=== PATIENT | male | born 1970 | race Caucasian/White ===

== ENCOUNTER 2016-06-07 18:00 | Inpatient (IN) | payer MEDICARE ==
[~2016-06-07] VITALS: Ht 182.9 cm; Wt 105.5 kg
[~2016-06-07 18:00] MED LIST: AMT50T PO; CANNABIS OIL PO; FLUO20CA25 PO; LACT10SO27 PO; NADO20TA PO; PANT40TA3 PO
[2016-06-07 18:05] VITALS: BP 124/88; PULSE 101; RESP 16; O2SAT 95
[2016-06-07 18:49] LABS: BASOPHILS % (AUTO) 1.7 % (0-3); EOSINOPHILS % (AUTO) 4.4 % (0-5); MONOCYTES % (AUTO) 13.6 % (4-12); Mean Corpuscular Hemoglobin 23.4 pg (27.0-35.0); Mean Corpuscular Volume 73.5 fL (81-100); Platelet Count 101 bil/L (150-400)
[2016-06-07] MEDS ORDERED: Octreotide Inj 500 MCG in 0.9% Sodium Chloride 99 ML IV SCH (18:55)
[2016-06-07] MEDS ORDERED: Pantoprazole 4 mg/mL 10 mL Inj IVPUSH ONE (18:55)
--- NOTE | 2016-06-07 18:55 | ED.REPORT ---
HPI-GI Bleed Date of Service Jun 07, 2016 ED Provider: Agustín Barboza DO Pt is a 45 y.o. male with a hx of gastric and esophageal varices and cirrhosis who presents to the ED c/o 1 episode of hematemesis. He reports associated abdominal pain, nausea, and 1 episode of black stool. He states that the emesis was pink in color with blood clots.Pt states that his sx are similar to his last two GI bleeds, the most recent being 09/20/15 for which he was admitted to the ICU. He states his last endoscopy 6-8 months ago was normal and that his ulcers were healed. Pt denies any recent ETOH, ibuprofen, or aspirin use. Nursing Notes Stated Complaint: GASTRIC BLEEDING Chief Complaint: Male Abdominal Pain Nursing Notes Reviewed: Yes Allergies: Coded Allergies: Shellfish (Verified Allergy, Intermediate, unk, 06/07/16) Scheduled ([OTC Cannabis Oil]) 6 GTT PO HS Amitriptyline (Amitriptyline) 25 Mg Tab 50 MG PO HS Fluoxetine (Fluoxetine) 20 Mg Capsule 20 MG PO DAILY Lactulose (Lactulose) 10 Gm/15 Ml Solution 30 GM PO TID TITRATE FOR 3 SOFT STOOLS Nadolol (Nadolol) 20 Mg Tablet 20 MG PO HS Rifaximin (Xifaxan) 550 Mg Tablet 550 MG PO BID Scheduled PRN Albuterol HFA (Proair HFA) 8.5 Gm Hfa.aer.ad 2 PUFFS INHALATION Q4H PRN PRN For Shortness of Breath Nicotine Polacrilex (Nicotine Gum) 2 Mg Gum 2 MG PO PRN PRN PRN For Tobacco Withdrawal General Time Seen by Provider: 18:55 Chief Complaint Chief Complaint: Vomiting blood Bleeding Severity: Minimal, Teaspoons Hx Obtained From: Patient Arrived By: Walk-in Onset Occurred: 1 - 4 hours ago Symptom Duration: Since onset Location: : Diffuse Quality: Painful Severity: Current: No pain currently Severity: Maximum: Moderate Past Medical History Past Medical History Esophageal varices Pneumonia Cirrhosis Past Surgical History Colonoscopy with polypectomy Endoscopy Herniated disk Smoking History Current Every Day Smoker Social History Alcohol Use: Denies alcohol use Drug Use: Denies drug use Ambulatory Status Independent Review of Systems GI: Reports: Abdominal pain, Bloody/tarry stool (dark), Hematemesis, Nausea, Vomiting, Denies: Diarrhea Complete sys rev & neg: except as marked. Physical Exam Initial Vital Signs Vital Signs (First) Date Time Temp Pulse Resp B/P Pulse Ox O2 Delivery O2 Flow Rate FiO2 06/07/16 18:05 36.9 101 16 124/88 95 Room Air Initial VS: Reviewed Extremities: Vascular intact, Neuro intact Skin: Warm, Dry, No cyanosis Neurologic: Alert, Oriented, Nonfocal Psychiatric: Mood/affect normal, Behavior normal, Normal thought content General/Constitutional: Awake, Alert, No acute distress, Well appearing, Well developed, Well hydrated, Well nourished, Not toxic appearing Respiratory / Chest: Atraumatic, Breath sounds NL, Breath sounds = bilat, No respiratory distress, No rales, No rhonchi, No wheezing, No retractions, No stridor Cardiovascular: Heart rate NL, Regular rhythm, Heart sounds NL, Peripheral circulation NL Abdomen: Atraumatic, Soft, Non-tender, No guarding, No rebound, No distention Organomegaly / Mass / Hernia: Positive: Hepatomegaly No ascites present upon examination Rectum / Perineum: Patient refused exam Head / Eyes: Atraumatic, Normocephalic Conjunctiva / Sclera: Positive: Pallor Interpretation & Diagnostics Lab Results Interpretation Result Diagram: 06/07/16201906/07/16 1830 Test 06/07/16 18:30 06/07/16 19:57 06/07/16 20:20 White Blood Count 5.2th/mm3 (3.8-10.1) Red Blood Count 4.31mil/mm3 (4.40-5.80) Mean Corpuscular Volume 73.5fL (81-100) Mean Corpuscular Hemoglobin 23.4pg (27.0-35.0) Mean Corpuscular Hemoglobin Concent 31.9% (32.0-37.0) Red Cell Distribution Width 22.8% (12.3-15.4) Platelet Count 101bil/L (150-400) Neutrophils (%) (Auto) 58.0% (40-74) Lymphocytes (%) (Auto) 22.3% (14-46) Monocytes (%) (Auto) 13.6% (4-12) Eosinophils (%) (Auto) 4.4% (0-5) Basophils (%) (Auto) 1.7% (0-3) Prothrombin Time 15.4sec (8.1-12.5) Prothromb Time International Ratio 1.43ratio Sodium Level 134mEq/L (134-144) Potassium Level 4.6mEq/L (3.5-5.2) Chloride Level 100mEq/L (97-108) Carbon Dioxide Level 22mmol/L (18-29) Blood Urea Nitrogen 10mg/dL (6-24) Creatinine 0.45mg/dL (0.76-1.27) Estimat Glomerular Filtration Rate 215mL/min (>59) Glucose Level 157mg/dL (60-99) Calcium Level 8.5mg/dL (8.5-10.1) Total Bilirubin 1.9mg/dL (0.0-1.2) Aspartate Amino Transf (AST/SGOT) 169U/L (0-50) Alanine Aminotransferase (ALT/SGPT) 48U/L (0-44) Alkaline Phosphatase 115U/L (25-150) Total Protein 7.6g/dL (6.4-8.4) Albumin 3.5g/dL (3.4-5.0) Hold Rayo Top Tube Received (Received) Ammonia 190ug/dL (18-53) Hemoglobin 9.8g/dL (13.8-17.2) Hematocrit 30.4% (41.0-50.0) ECG Interpretation Time: 19:03 Normal ECG Interpretation: Normal ECG w/ rate of... (93), Normal rate, Normal sinus rhythm, No acute ischemic changes, Normal QRS, Normal axis, Normal intervals Re-Eval/Medical Decision Med Decision/Clinical Course 45-year-old male with a history of esophageal varices and peptic ulcer disease presents with hematemesis. He also has dark stools. He is brought up several teaspoons of blood today. He has abstained from alcohol for many months. He is not using NSAIDs. He was last scope in October by Dr. Pan. On examination his vitals were normal. He is not tachycardic nor hypotensive. He looks a little pale but beyond that he has a benign examination. He does have some hepatomegaly. Laboratory work shows mild anemia. Thrombocytopenia. He does have a coagulopathy with an INR of 1.4. Remainder of labs are reassuring. IV access 3 was obtained. Octreotide bolus and drip initiated. Protonix bolus and drip initiated. IV ceftriaxone initiated. This gentleman has been typed and crossed for 4 units. Past intestinal consultation was performed by myself with the on-call instrumentation designer. Time for admission to the ICU. Discussed with our hospitalist who accepted him for admission. Re-Evaluation/Progress : Time of Eval: 20:03 Re-Evaluation/Progress Note: Pt is now vomiting per nurse. Consultation #1: Referral / Consult Name: Nga Chavez MD Call Returned at: 20:02 Pbx Operator: Will see patient, Agrees with eval, Agrees with plan Note: Discussed pt condition with Dr. Chavez, GI. Will consult and see pt tomorrow. Consultation #2: Referral / Consult Name: Colby Monreal MD Consulted With: Hospitalist Call Returned at: 20:10 Pbx Operator: Will see patient, Agrees with eval, Agrees with plan, Accepts admit Note: Discussed pt condition and consult with Dr. Chavez. Accepts admit. Counseled Regarding: Diagnosis Discharge & Departure Shift Change Sign-Out Response to Therapy: Improved Impression: Primary Impression: Upper GI bleed Additional Impressions: Hematemesis Nausea presence: with nausea Qualified Code: K92.0 - Hematemesis Dark stools Esophageal varices Esophageal varices type: secondary Esophageal varices bleeding: with bleeding Qualified Code: I85.11 - Secondary esophageal varices with bleeding Coagulopathy Thrombocytopenia Cirrhosis of liver Hepatic cirrhosis type: alcoholic cirrhosis Ascites presence: without ascites Qualified Code: K70.30 - Alcoholic cirrhosis of liver without ascites Disposition: ADMITTED TO HOSPITAL Discharge Condition All VS Reviewed: Yes Referrals: Jim Messer MD (PCP) Crit Care Except Billable Proc Time Spent: 75-104 minutes Scribe Attestation Portions of this note were transcribed by Johnathon Sanders. I, Dr. Barboza personally performed the history, physical exam and medical decision-making; I reviewed and confirmed the accuracy of the information in the transcribed note. Signed by : Gretta Carrillo, 06/07/16 and 2038. copies to: Jim Messer MD, Todd P DO Jun 07, 2016 18:55 JOHNATHON SANDERS Jun 07, 2016 19:08
[2016-06-07 18:59] LABS: INR 1.43 ratio
[2016-06-07 19:32] VITALS: BP 144/103; PULSE 84; RESP 16; O2SAT 99
[2016-06-07] MEDS ORDERED: Ondansetron 2 mg/mL 2 mL Inj IVPUSH PRN ×2 (20:05→20:15)
[2016-06-07] MEDS ORDERED: cefTRIAXone Inj 2,000 MG in Dextrose 5% Minibag Plus 50 ML IV ONE (20:05)
[2016-06-07] MEDS ORDERED: Pantoprazole Inj 80 MG, Pharmacy To Mix 1 EA in 0.9% Sodium Chloride 80 ML IV SCH ×2 (20:15)
[2016-06-07] MEDS ORDERED: Alum-Mag Hydrox-Simeth 30 mL Suspension PO PRN (20:15)
[2016-06-07] MEDS: Octreotide Inj 500 MCG in 0.9% Sodium Chloride 99 ML IV SCH (20:15)
[2016-06-07] MEDS ORDERED: Senna-Docusate 8.6-50 mg Tablet PO PRN (20:15)
[2016-06-07] MEDS ORDERED: Polyethylene Glycol (PEG) 17 Gm Powder PO PRN (20:15)
[2016-06-07] MEDS: Pantoprazole Inj 80 MG in 0.9% Sodium Chloride 80 ML IV SCH (21:05)
[2016-06-07 21:13] VITALS: BP 126/92; PULSE 95; RESP 16; O2SAT 96
[2016-06-07] MEDS ORDERED: ALBU8.5H2 INHALATION (21:33)
[2016-06-07] MEDS ORDERED: RIFA550T3 PO (21:33)
[2016-06-07] MEDS ORDERED: AMT25T PO (21:40)
[2016-06-07] MEDS ORDERED: NICO2GUM3 PO (21:40)
[2016-06-07] MEDS ORDERED: IPRA4AER IH (21:41)
[2016-06-07 21:52] VITALS: BP 126/92; PULSE 95; RESP 16; O2SAT 96
[2016-06-07] MEDS: 0.9% Sodium Chloride 1,000 ML IV SCH (21:53)
--- NOTE | 2016-06-07 22:15 | PCM.HPMED ---
Subjective Date of Service Jun 07, 2016 Primary Provider: Admitting Physician: Primary Care Physician: Isis Rogers [facility] Attending Physician: Admit Status: From the Emergency Department, Full Admit, Critical Care Chief Complaint: Hematemesis History of Present Illness: Remy Krueger is a 45 y.o. male with Cirrhosis with gastric and esophageal varices and cirrhosis who presents to [facility] emergency department c/o 1 episode of hematemesis. He reports associated abdominal pain (diffuse without any radiation), nausea, and 1 episode of black stool. He states that the emesis was pink in color with blood clots. Denies taking any NSAID recently and no alcohol intake Pt states that his symptoms are similar to his last two GI bleeds, the most recent being 09/20/15 for which he was admitted to the ICU. He states his last endoscopy 6-8 months ago was normal and that his ulcers were healed. Pt denies any recent ETOH, ibuprofen, or aspirin use. Patient had Upper GI bleeding in 2013 while vacationing in [place] and found to have varices that were banded and patient has been on Nadolol for prophylaxis. Patient has chronic Hepatitis C infection from tattoo and was a heavy drinker in the past. Case discussed with Dr Barboza, he spoke to Dr Chavez. Patient admitted to CCU, Protonix, fluids and Octreotide initiated Review of Systems: Pertinent positives as noted in HPI. All other systems were reviewed and are negative Allergies Coded Allergies: Shellfish (Verified Allergy, Intermediate, unk, 06/07/16) Home Medications From [facility] Hydroxyzine 25 mg 2 tabs HS prn itching Combivent 20/100 inh 1 puff qid prn Amitriptyline 100 mg HS Fluoxetine 20 mg daily Protonix 40 mg bid Nadolol 20 mg daily Lactulose 30 ml tid Ventolin HFA 2 puffs q 4-6 hours prn Xifaxan 550 mg bid PMH HCV genotype 1a, treated with Harvoni Alcoholic hepatitis Varices, fundic and esophageal Hemorrhoids Chronic bronchitis Hypertension . Surgical History EGD 04/2015: - Small esophageal varices - Isolated fundic varices - Portal hypertensive gastropathy - Duodenopathy - Colon polyps - Engorged hemorrhoids Family History Mother had Lupus Father: Sudden , unknown etiology Social History Hx Alcohol Use: Yes (Sober since 09/30/13; uses cannabis oil at HS) Hx Substance Use: No Hx Tobacco Use: Yes Smoking Status: Current Every Day Smoker Living Arrangement: with Family Exam Vital Signs Vital Sign - Last Date Time Temp Pulse Resp B/P Pulse Ox O2 Delivery O2 Flow Rate FiO2 06/07/16 19:32 84 16 144/103 99 Room Air 06/07/16 18:05 36.9 Exam General: Alert, Oriented X3, Cooperative, No acute Distress Eyes: PERRLA, Scleral Anicteric Mouth: Mouth Normal, Mucous Membranes Moist/[place] Neck: Supple, no Thyromegaly, trachea central. Chest & Lungs: Clear to auscultation & percussion, No adventitious breath sounds, no crackles, no wheeze Cardiovascular: Normal S1, Normal S2, No Murmurs/Rubs/Gallops, Regular Rate/ Rhythm, Murmur, Other (No JVD, no peripheral edema) Pulses: Radial (present and equal), Dorsalis Pedi (present and equal) Abdomen: Soft, Non-tender, Non-distended, Normoactive bowel tones. Musculoskeletal: Unremarkable. Normal range of motion, no swollen or erythematous joints Extremities: No edema, no cyanosis, no clubbing. Skin: No rashes. Warm and dry, no erythematous areas Neurological: Grossly neurologically intact, has generalized weakness, Normal Speech, Sensation Intact Lymphatic: Lymph nodes Cervical and Axillary not palpable. Lab and Diagnostics Labs Laboratory Tests Test 06/07/16 18:30 06/07/16 19:57 White Blood Count 5.2th/mm3 (3.8-10.1) Red Blood Count 4.31mil/mm3 (4.40-5.80) Hemoglobin 10.1g/dL (13.8-17.2) Hematocrit 31.7% (41.0-50.0) Mean Corpuscular Volume 73.5fL (81-100) Mean Corpuscular Hemoglobin 23.4pg (27.0-35.0) Mean Corpuscular Hemoglobin Concent 31.9% (32.0-37.0) Red Cell Distribution Width 22.8% (12.3-15.4) Platelet Count 101bil/L (150-400) Neutrophils (%) (Auto) 58.0% (40-74) Lymphocytes (%) (Auto) 22.3% (14-46) Monocytes (%) (Auto) 13.6% (4-12) Eosinophils (%) (Auto) 4.4% (0-5) Basophils (%) (Auto) 1.7% (0-3) Prothrombin Time 15.4sec (8.1-12.5) Prothromb Time International Ratio 1.43ratio Sodium Level 134mEq/L (134-144) Potassium Level 4.6mEq/L (3.5-5.2) Chloride Level 100mEq/L (97-108) Carbon Dioxide Level 22mmol/L (18-29) Blood Urea Nitrogen 10mg/dL (6-24) Creatinine 0.45mg/dL (0.76-1.27) Estimat Glomerular Filtration Rate 215mL/min (>59) Glucose Level 157mg/dL (60-99) Calcium Level 8.5mg/dL (8.5-10.1) Total Bilirubin 1.9mg/dL (0.0-1.2) Aspartate Amino Transf (AST/SGOT) 169U/L (0-50) Alanine Aminotransferase (ALT/SGPT) 48U/L (0-44) Alkaline Phosphatase 115U/L (25-150) Total Protein 7.6g/dL (6.4-8.4) Albumin 3.5g/dL (3.4-5.0) Hold Rayo Top Tube Received (Received) Result Diagram: 06/07/16182906/07/161829 Assessment & Plan Mr. Remy Krueger is a pleasant 45 year old gentleman with a history of alcoholic cirrhosis, gastric varices, HCV, and HTN, that presented to the ED with a 12 hour history of hematemesis; He was admitted for evaluation and treatment of acute anemia secondary to gastrointestinal bleeding. Hospital day one 1. Upper gastrointestinal bleeding, acute, present on admission. Under therapy Likely variceal bleeding although patient has ulcers in the past. Denies any NSAID or Alcohol intake. - CCU admission for close monitoring - Strict NPO - Octreotide drip continued preferably for 48-72 hours - Protonix continued - Ceftriaxone 1g q24 continued for SBP prophylaxis - Avoidance of NSAIDs 2. Anemia, acute from blood loss, present on admission. Under therapy - Secondary to above - tachycardia sign of volume loss but no hypotension at this time - continue IV fluids to maintain volume - will transfuse pRBC if Hgb < 7 according restrictive transfusions guidelines 3. Alcoholic cirrhosis with portal Hypertension, Thrombocytopenia and varices, chronic. - Holding lactulose at this time secondary to bleed and possibility for endoscopic intervention/evaluation - Resume lactulose when appropriate as well as Rifaximin - Platelet transfusion when drop < 50,000. 4. Hypertension, essential, chronic. Patient not on any antihypertensive agents - Monitor closely 5. Nicotine Dependence. Ongoing - cessation discussed and encouraged. - Nicotine lozenges ordered - Acetaminophen as needed for mild pain/fever/headache - Bowel regimen as needed - Antiemetic as needed Patient admitted under inpatient status with expected length of stay > 2 midnights for severity of present symptoms, complexities of treatment plan and risk for adverse event . Resuscitation Status: CPR: Attempt Resuscitation Time spent 50 minutes of critical care time spend Colby Monreal MD Jun 07, 2016 20:20
[2016-06-07 22:19] VITALS: BP 148/92; PULSE 86; RESP 18; O2SAT 97
--- NOTE | 2016-06-07 22:50 | NUR ---
Admit to CCU Pt admitted to CCU room 2010 from ED in stable condition and with all belongings. A&O x 3. Able to ambulate from gurney to scale to bed without difficulty or problem. Tele shoes SR 90s. SpO2 high 90s on RA. Denies n/v/d, palpitations, or dizziness at this time. Reports 6/10 "pressure" in abdomen, which is pt's baseline. Oriented pt to room, floor and call light. Pt's Rhea decided to go home for evening and will be back in AM. All questions answered to satisfaction of pt and . Admit complete. Care ongoing
[2016-06-08] VITALS (13 sets, daily range): BP systolic 99–157; BP diastolic 58–97; PULSE 77–96; RESP 16–20; O2SAT 92–97
--- NOTE | 2016-06-08 03:08 | NUR ---
Transfer to [facility] Pt transferred with all belongings, medications and chart to [facility]. Report noted from CCU RN. Pt had small burgundy, dark and tarry stool prior to move. made aware this am with new orders noted. Pt denies any pain/discomfort. Alert and oriented x3. Pt denies any c/o nausea. Addendum: 06/08/16 at 0506 by MENDEZ DUMONT RN Correction: Pt had a moderate amount of small, burgundy, dark and tarry stool.
[2016-06-08] MEDS: 0.9% Sodium Chloride 1,000 ML IV SCH ×3 (04:11→20:16)
[2016-06-08 04:51] LABS: BASOPHILS % (AUTO) 1.1 % (0-3); EOSINOPHILS % (AUTO) 3.4 % (0-5); MONOCYTES % (AUTO) 12.7 % (4-12); Mean Corpuscular Hemoglobin 23.9 pg (27.0-35.0); Mean Corpuscular Volume 74.7 fL (81-100); Platelet Count 71 bil/L (150-400)
[2016-06-08] MEDS: Pantoprazole Inj 80 MG in 0.9% Sodium Chloride 80 ML IV SCH (05:39)
--- NOTE | 2016-06-08 06:07 | NUR ---
BM/H&H No further BM noted at this time. Md made aware of am H&H 8.5 & 26.6. Order for q4H H&H noted. Telemetry SR in 80s. Pt denies any chest pain. Pt alert and oriented x3. VALENZUELA. Forgetful at times. Answers questions appropriately. Using call light for assistance.
[2016-06-08] MEDS: Octreotide Inj 500 MCG in 0.9% Sodium Chloride 99 ML IV SCH ×2 (06:15→20:06)
--- NOTE | 2016-06-08 11:49 | PCM.PNMED ---
Subjective Date of Service Jun 08, 2016 Subjective This is a 45 year old male who was admitted overnight due to abdominal pain, nausea, melena, hematemesis. Patient has a history to upper GI bleeds with most recent being in August 2015 with ICU admission. Last endoscopy patient states was 2 months ago her records indicate 6-8 months ago was normal. Patient was previously banded. Patient does have a history of alcoholic cirrhosis as well as possible hepatitis cirrhosis due to positive hep C from tattoos, and gastric and esophageal varices. Patient states that no longer drinks except for a couple of sips on a regular basis. Also denies use of aspirin and ibuprofen. Patient's GI history was worked up and treated in [place]. This morning the patient is doing well with no additional pain. No nausea, vomiting, melena, hematemesis, lightheadedness, confusion, or dizziness. Patient is sleeping well. GI was consulted from the emergency department and patient scheduled to undergo upper endoscopy this afternoon at 3:30. Patient made nothing by mouth at noon, and only clear liquids until a time. Exam Vital Signs Vital Sign - Last Date Time Temp Pulse Resp B/P Pulse Ox O2 Delivery O2 Flow Rate FiO2 06/08/16 08:50 36.8 85 16 138/91 95 Room Air Intake and Output 06/07/16 06/07/16 06/08/16 Cumulative From/Thru 15:00 23:00 07:00 06/07/16 18:05 - 06/08/16 05:51 Intake Total 1172 ml 1172 ml Output Total 450 ml 450 ml Balance 722 ml 722 ml Intake Oral 100 ml 100 ml IV Total 1072 ml 1072 ml Output Urine Total 450 ml 450 ml # Bowel Movements 1 1 Exam Gen: NAD, lying comfortably HEENT: no jvd, no lymphadenopathy Cardio: Regular rate and rhythm no murmurs rubs or gallops Respiratory: Clear to auscultation bilaterally with no coarse breath sounds Abdomen: Soft, nontender, nondistended, positive bowel sounds, no right upper quadrant or epigastric tenderness Extremities: No edema, no cyanosis Skin: No rashes, warm and dry Neurological: Grossly intact, moving all 4 shoulders Psych: Appropriate mood and affect Lab and Diagnostics Result Diagram: 06/08/16 0910 06/08/16 1499 Assessment & Plan Mr. Remy Krueger is a pleasant 45 year old gentleman with a history of alcoholic cirrhosis, gastric varices, HCV, and HTN, that presented to the ED with a 12 hour history of hematemesis; He was admitted for evaluation and treatment of acute anemia secondary to gastrointestinal bleeding. Hospital day one 1. Upper gastrointestinal bleeding, acute, present on admission. Under therapy - Likely variceal bleeding although patient has ulcers in the past. Denies any NSAID or Alcohol intake. - Downgraded to PCC - Strict NPO after noon, consistent with endoscopy nurses instructions. Clear liquids with no red or purple until noon - Octreotide drip continued preferably for 48-72 hours - Protonix continued - Ceftriaxone 1g q24 continued for SBP prophylaxis - Avoidance of NSAIDs - Restart Nadolol after GI assessment 2. Anemia, acute from blood loss, present on admission. Under therapy - Secondary to above - tachycardia sign of volume loss but no hypotension at this time - continue IV fluids to maintain volume - will transfuse pRBC if Hgb < 7 according restrictive transfusions guidelines; currently patient is stable at approximately 0.5 3. Alcoholic cirrhosis with portal Hypertension, Thrombocytopenia and varices, chronic. - Holding lactulose at this time secondary to bleed and possibility for endoscopic intervention/evaluation - Resume lactulose when appropriate as well as Rifaximin - Platelet transfusion when drop < 50,000. 4. Hypertension, essential, chronic. Patient not on any antihypertensive agents - Monitor closely 5. Nicotine Dependence. Ongoing - cessation discussed and encouraged. - Nicotine lozenges ordered 6. Hyperammonia without encephalopathy; present on admission; ongoing - We will recheck ammonia level tomorrow as the patient is close to 200. Currently not showing any signs of confusion but is increasing tired - Recheck ammonia - Avoid Tylenol as much as possible; no NSAIDs due to ongoing bleed - Bowel regimen as needed - Antiemetic as needed Disposition: Patient will undergo upper endoscopy today with discharge planning per findings. Highly likely that the patient be discharged either tomorrow or Saturday but again this is dependent on the EGD today. . Pain Evaluation: Adequate Pain Control GI Prophylaxis: Proton Pump Inhibitor VTE Mechanical Devices: Intermittant Pneumatic CD Resuscitation Status: CPR: Attempt Resuscitation Leodan Casillas DO Jun 08, 2016 11:49
[2016-06-08] MEDS ORDERED: Lidocaine PF 1% 30 mL Inj ONE ×2 (12:49→15:33)
[2016-06-08] MEDS ORDERED: Propofol 10,000 mCg/mL 20 mL Inj ONE ×2 (12:49→15:33)
--- NOTE | 2016-06-08 13:53 | PCM.CHPMED ---
Subjective Date of Service: Jun 08, 2016 Provider requesting consult: Agustín Barboza DO Primary Physician: Admitting Physician: Colby Monreal MD Primary Care Physician: Isis Rogers Attending Physician: Colby Monreal MD Chief Complaint: Chief Complaint: REASON FOR GI CONSULT: Upper GI bleed/hematemesis History of Present Illness: GASTROENTEROLOGY CONSULTATION NOTE Mr. Krueger is an extremely pleasant 45 year old gentleman with a history of alcoholic cirrhosis, HCV genotype 1a treated with Harvoni, and fundic and esophageal varices, that presented to [facility] 06/07 with 3 episodes of hematemesis , abdominal pain, and melena. He was admitted for evaluation and treatment of acute anemia secondary to UGIB. GI was consulted to further assist in evaluation and treatment. Mr. Krueger states that after dinner 06/07, he began feeling ill with abdominal pain. His first episode of emesis contained a large amount of blood, and subsequent episodes x2 yielded less, and blood became scant. No recurrence of nausea and/or vomiting since admission. Stools remain dark and tarry. Denies any inciting factors for onset, other than overall general malaise and cough secondary to URI likely from his children, whom are also ill with URI-symptoms. Denies any recent NSAID, ASA use. Last EtOH intake was an isolated event summer 2015, of which, he states was not a binge amount, and has not had any EtOH intake since that time. GI consulted to evaluate symptoms and etiology. PMH Past Medical History HCV genotype 1a, treated with Harvoni Alcoholic hepatitis Varices, fundic and esophageal Hemorrhoids Chronic bronchitis Hypertension . Surgical History EGD 10/2015: - Healing PUD; improved and healing duodenal ulcers - Moderate gastropathy consistent with portal HTN - Isolated small fundal and small esophageal varices EGD 04/2015: - Small esophageal varices - Isolated fundic varices - Portal hypertensive gastropathy - Duodenopathy - Colon polyps - Engorged hemorrhoids Home Medications Hydroxyzine 25 mg 2 tabs HS prn itching Combivent 20/100 inh 1 puff qid prn Amitriptyline 100 mg HS Fluoxetine 20 mg daily Protonix 40 mg bid Nadolol 20 mg daily Lactulose 30 ml tid Ventolin HFA 2 puffs q 4-6 hours prn Xifaxan 550 mg bid Allergies: Coded Allergies: Shellfish (Verified Allergy, Intermediate, unk, 06/07/16) Family History Family History Mother had Lupus Father: Sudden , unknown etiology Social History Hx Alcohol Use: Yes (Sober since 09/30/13; uses cannabis oil at HS)Hx Substance Use: NoHx Tobacco Use: Yes Smoking Status: Current Every Day Smoker Living Arrangement: with Family Exam Vital Signs Vital Sign - Last Date Time Temp Pulse Resp B/P Pulse Ox O2 Delivery O2 Flow Rate FiO2 06/08/16 12:26 37.1 89 16 133/97 95 Room Air Intake and Output 06/07/16 06/07/16 06/08/16 Cumulative From/Thru 15:00 23:00 07:00 06/07/16 18:05 - 06/08/16 05:51 Intake Total 1172 ml 1172 ml Output Total 450 ml 450 ml Balance 722 ml 722 ml Intake Oral 100 ml 100 ml IV Total 1072 ml 1072 ml Output Urine Total 450 ml 450 ml # Bowel Movements 1 1 General: Alert, Oriented X3, Cooperative, No Acute Distress Head: Facial Expression & Appearance (equal and symmetric) Eyes: EOMI, Scleral Anicteric Nose: Mucous Membr Moist/[place] Mouth: Mucous Membr Moist/[place] Chest & Lungs: Auscultation (Clear bilaterally), No adventitious breath sounds Cardiovascular: Regular Rate/Rhythm, No Murmurs/Rubs/Gallops Abdomen: Non-tender, Non-distended, Soft, Obese Musculoskeletal: Normal Range of Motion Extremities: No cyanosis/clubbing/edma bilat, Warm Neurological: Grossly Neurologically Intact, Cranial Nerves 2-12 Intact, Normal Speech (without slur) Lab and Diagnostics Result Diagram: 06/08/1690906/08/16419 Assessment & Plan Assessment GASTROENTEROLOGY CONSULTATION NOTE Mr. Krueger is an extremely pleasant 45 year old gentleman with a history of alcoholic cirrhosis, HCV genotype 1a treated with Harvoni, and fundic and esophageal varices, that presented to [facility] 06/07 with 3 episodes of hematemesis , abdominal pain, and melena. He was admitted for evaluation and treatment of acute anemia secondary to UGIB. GI was consulted to further assist in evaluation and treatment. Assessments - Acute upper gastrointestinal bleeding - History of fundic and esophageal varices - History of alcoholic cirrhosis with portal HTN - History of HCV genotype 1a s/p Harvoni Plan - EGD 06/08 - Hold lactulose/rifaxamin until scope completed - Continue octreotide x48-72h from date of admission - Continue PPI gtt - Monitor HH values as appropriate - Agree with ceftriaxone 1g q24 for SBP prophylaxis - Avoidance of NSAIDs - Continued abstinence from alcohol Patient has been stable since admission, without recurrence of hematemesis. H/H values, vital signs have been stable. Plan for EGD 06/08. Thank you for this consult, we will happily follow along at this time. Please do not hesitate to contact with any questions or concerns. Total time: 45 minutes Problems: Pain Evaluation: Adequate Pain Control GI Prophylaxis: Proton Pump Inhibitor VTE Mechanical Devices: Intermittant Pneumatic CD Resuscitation Status: CPR: Attempt Resuscitation Attending Statement Patient seen and examined. Agree with assessment and plan as described by Dr Stapleton. Ophelia Stapleton DO Jun 08, 2016 13:53 Yariel Huerta MD Jun 08, 2016 16:33
[2016-06-08] MEDS ORDERED: Lactated Ringer's 1,000 ML IV ONE (14:50)
--- NOTE | 2016-06-08 15:11 | NUR ---
[facility] signed
[2016-06-08] MEDS ORDERED: Lactated Ringer's 1,000 ML IV SCH (15:38)
--- NOTE | 2016-06-08 15:38 | PCM.HPANE ---
Patient Data Date of Service: Jun 08, 2016 Surgeon Admitting Provider:Colby Monreal MD Attending Provider:Colby Monreal MD Primary Care Physician:Isis Rogers Other Provider: Reason for Visit Chest Wall Pain, Pneumonia Ht/WT & BMI Height (Feet): 6 Height (Inches): 0.00 Weight (Kilograms): 104.900 Body Mass Index 31.00 Allergies Coded Allergies: Shellfish (Verified Allergy, Intermediate, unk, 06/07/16) Past Anesthesia History Anesthesia History: Denies:: Abnormal Airway, Anesthesia Reactions, Difficult Intubation, Fam Anesthesia Reaction, Fam Malignant Hypertherm, Malignant Hyperthermia Diabetes History Hx Diabetes?: No MRSA MRSA: No Medications Home Meds Incl Beta Sher: Yes (nadolol) Date Beta Sher Taken: Jun 07, 2016 Time Beta Sher Taken: 1200 Reported Medications Albuterol/Ipratropium (Combivent Respimat Inhal [place])120 Spr/4 Gm Inhaler1 Puff IH QID PRN For Shortness of Breath #1 INH Ref 0 06/07/16 Nicotine Polacrilex (Nicotine Gum)2 Mg Gum2 Mg PO PRN PRN For Tobacco Withdrawal Ref 0 06/07/16 Amitriptyline 25 Mg Tab50 Mg PO HS Ref 0 06/07/16 Albuterol HFA (Proair HFA)8.5 Gm Hfa.aer.ad2 Puffs INHALATION Q4H PRN For Shortness of Breath #1 INHALER 06/07/16 Rifaximin (Xifaxan)550 Mg Vckbel113 Mg PO BID 60 Days 06/07/16 Lactulose 10 Gm/15 Ml Mmmtxfeh75 Gm PO TID TITRATE FOR 3 SOFT STOOLS 11/22/15 [OTC Cannabis Oil] No Conflict Check6 Gtt PO HS 11/22/15 Fluoxetine 20 Mg Jrrxojx50 Mg PO DAILY Ref 0 11/07/15 Nadolol 20 Mg Fupjtl09 Mg PO HS 30 Days Ref 0 10/20/15 Discontinued Reported Medications Amitriptyline 50 Mg Tab50 Mg PO HS Ref 0 10/20/[address] 40 Mg Tablet.dr40 Mg PO BID #60 Prov:Wilian Bassett MD 10/23/15 History History of ENT Problems?: No HEENT History: Denies:: Abnormal Airway Difficult Intubation Dysphagia Hearing Problem Hx of Heart Problems?: No Cardiovascular History: Positive for:: Hypertension Denies:: AICD Atrial Fibrillation Cardiac Surgery Chest Pain Congestive Heart Failure Edema Heart Murmur Irregular Heartbeat Pacemaker Thrombophlebitis Valvular Heart Disease Hx of Respiratory Problem?: Yes Respiratory History: Positive for:: Pneumonia (2013) Denies:: Asthma COPD Chest Surgery Cough Dyspnea Emphysema Hemoptysis Tuberculosis Other Resp Pertinent History: ? smokers cough x 1 year Hx Neurologic Problems?: Yes Neurological History: Denies:: Alzheimer's Disease CVA Dementia Dizziness Headaches Parkinson's Disease Seizures Other Neurological Pertinent: Confused at times from ammonia levels Hx of GI Problems?: Yes Gastrointestinal History: Positive for:: Cirrhosis Gastroesphageal Reflux Gastrointestinal Bleeding (Recent admission 08/2015) Heartburn Hepatitis (hep C treated 1 year ago.) Rectal Bleeding Denies:: Diverticulitis Hiatal Hernia Hx of Problems?: No Genitourinary History: Denies:: HX of Hemodialysis Kidney Stones Urinary Tract Infection HX of Peritoneal Dialysis: No Male Hx: Denies:: Prostate Problems Scrotal Mass Testicular Surgery Hx Musculoskeletal Problems?: Yes Musculoskeletal History: Positive for:: Back Injury (Slipped disc) Denies:: Joint Replacement Musculoskeletal Trauma Hx of Psycho/Social Problems?: No Psycho Social History: Positive for:: Hx Depression (on fluoxetine ) Denies:: Anxiety Bipolar Disorder Suicide Attempt Hx Surgeries?: Yes (Hernia rpr, back surgery) Hx Any Other Health Problems?: Yes Other History: Positive for:: Hospitalization (GI bleed 08/2015) Denies:: Cancer Thyroid Disease History Blood Transfusions: Positive for:: Accept Blood Products? Blood Transfusions Denies:: Blood Transfuse Reaction Hx Diabetes: No Hx Alcohol Use: Yes (Sober since 09/30/13; uses cannabis oil at HS)Hx Substance Use: No Smoking Status: Current Every Day Smoker Have You Smoked inLast 12 mo: YesApprox How Many Cigarettes/day: 8-10 cigs a day Stop/Bang Treated for Sleep Apnea?: No Do You Have a CPAP Machine?: No S-Snoring: Do You Snore Loudly: Yes T-Tired: feel tired, fatigued: No O-Obsered: Observed not breath: No B- Body Mass Index > 35 kg/m2: No A- Age over 50: No N- Neck Large Circumference: No G- Gender Male: Yes JANELLE Risk Assessment: Low Risk, <3 Yes Risk Assessment Category Category 1A: Patient has history of documented sleep apnea, and HAS NOT received any narcotic, sedative or anesthesia administration during this stay. Category 1B: Patient has history of documented sleep apnea, and HAS received any narcotic , sedative or anesthesia administration during this stay Category 2: Patient has SUSPECTED Obstructive Sleep Apnea, and HAS received any narcotic , sedative or anesthesia administration during this stay. Category 3: Patient has SUSPECTED Obstructive Sleep Apnea and HAS NOT received narcotic, sedative or anesthesia administration during this stay. Category 4: Outpatient in Procedural Areas with known sleep apnea or who screen positive for High Risk via the STOP/BANG questionnaire. Exam Exam Vital Signs Vital Signs Date Time Temp Pulse Resp B/P Pulse Ox O2 Delivery O2 Flow Rate FiO2 06/08/16 15:15 36.6 85 17 125/85 97 Room Air 06/08/16 12:26 37.1 89 16 133/97 95 Room Air 06/08/16 08:50 36.8 85 16 138/91 95 Room Air 06/08/16 08:00 83 General Appearance: Alert, Oriented X3, Cooperative HEENT/AIRWAY: MP 2, Neck Movement (Full), Mouth Opening (Wide), Other (Yung) Lungs: Clear to Auscultation, Normal Air Movement Heart: Regular Rate/Rhythm, Normal S1, Normal S2 Meds/Labs/Diagnostics Admission Meds Current Medications Octreotide Acetate 50 mcg 50 mcg ONCE ONCE IV Last administered on 06/07/16 19 :50; Start 06/07/16 at 18:55; Stop 06/07/16 at 18:56; Status DC Octreotide Acetate/Sodium Chloride (SandoSTATIN Inj/ Normal Saline) 100 ml @ 10 mls/hr Q10H IV Last administered on 06/07/16 19:25; Start 06/07/16 at 18:55; Stop 06/07/16 at 20:30; Status DC Pantoprazole 80 mg 80 mg ONCE ONCE IVPUSH Last administered on 06/07/16 19:13 ; Start 06/07/16 at 18:55; Stop 06/07/16 at 18:56; Status DC Ceftriaxone Sodium 2000 mg/ Dextrose/Water 50 ml @ 100 mls/hr ONCE ONCE IV Last administered on 06/07/16 20:52; Start 06/07/16 at 20:05; Stop 06/07/16 at 20: 34; Status DC Sodium Chloride 1,000 ml @ 125 mls/hr Q8H IV Last administered on 06/08/16 05 :39; Start 06/07/16 at 20:11 Pantoprazole/ Sodium Chloride (Protonix Inj/ Normal Saline) 100 ml @ 10 mls/hr Q10H IV Last administered on 06/08/16 05:39; Start 06/07/16 at 20:15 Labs Test 06/07/16 18:30 06/07/16 19:57 06/08/16 04:20 06/08/16 13:45 Prothrombin Time 15.4sec (8.1-12.5) Prothromb Time International Ratio 1.43ratio Hold Rayo Top Tube Received (Received) Ammonia 190ug/dL (18-53) White Blood Count 4.7th/mm3 (3.8-10.1) Red Blood Count 3.56mil/mm3 (4.40-5.80) Mean Corpuscular Volume 74.7fL (81-100) Mean Corpuscular Hemoglobin 23.9pg (27.0-35.0) Mean Corpuscular Hemoglobin Concent 32.0% (32.0-37.0) Red Cell Distribution Width 22.5% (12.3-15.4) Platelet Count 71bil/L (150-400) Neutrophils (%) (Auto) 56.0% (40-74) Lymphocytes (%) (Auto) 26.8% (14-46) Monocytes (%) (Auto) 12.7% (4-12) Eosinophils (%) (Auto) 3.4% (0-5) Basophils (%) (Auto) 1.1% (0-3) Sodium Level 135mEq/L (134-144) Potassium Level 4.2mEq/L (3.5-5.2) Chloride Level 101mEq/L (97-108) Carbon Dioxide Level 20mmol/L (18-29) Blood Urea Nitrogen 12mg/dL (6-24) Creatinine 0.56mg/dL (0.76-1.27) Estimat Glomerular Filtration Rate 167mL/min (>59) Glucose Level 122mg/dL (60-99) Calcium Level 7.9mg/dL (8.5-10.1) Total Bilirubin 2.5mg/dL (0.0-1.2) Aspartate Amino Transf (AST/SGOT) 137U/L (0-50) Alanine Aminotransferase (ALT/SGPT) 40U/L (0-44) Alkaline Phosphatase 89U/L (25-150) Total Protein 6.5g/dL (6.4-8.4) Albumin 3.0g/dL (3.4-5.0) Hemoglobin 8.3g/dL (13.8-17.2) Hematocrit 26.4% (41.0-50.0) Plan Impression Patient chart reviewed, patient interviewed and anesthestic plan with risks, benefits, and alternatives discussed, and informed consent obtained. NPO Status: > 8 hours ASA Physical Status: ASA3 Severe Disease Anesthetic Plan: MAC Bene/Risks/Altern/Consents: Yes HP Complete Prior to Induction: Yes Remy Deleon MD Jun 08, 2016 15:38
[2016-06-08] MEDS ORDERED: Ondansetron 2 mg/mL 2 mL Inj IVPUSH PRN (15:40)
[2016-06-08] MEDS ORDERED: MetoCLOpramide 5 mg/mL 2 mL Inj IVPUSH PRN (15:40)
--- NOTE | 2016-06-08 16:09 | NUR ---
Social Work Note - Initial assessment Remy Krueger is a 45 yr old admitted for chest wall pain - pneumonia. Getting GI workup as well. EMR reviewed: Pt has Medicare. His PCP is at [facility] - in the process of establishing new PCP provider. Pt has no group home insurance, no VA benefits. DPOA paperwork on the chart. See attached CM initial assessment. REPAIR TECHNICIAN met with pt's family - Pt at [facility]. Introduced D/C planning and explained SW role. Pt's states that they live in [place] where pt is independent at baseline. He drives, no DME. He has some encephalopathy at times - is medication compliant. Pt has past hx of ETOH dependence - family denies any current drinking. Plan to return home when medically stable. No needs identified. Plan: Home with in POV. PJ Galeas Addendum: 06/08/16 at 1612 by BONITA TELLO SS Amended: Links added.
--- NOTE | 2016-06-08 16:10 | PCM.ANEP1 ---
Post Anesthesia Phase 1 PACU Phase 1 Assessment Date of Service: Jun 08, 2016 Vital Signs BP 99/58, 92% RA, T 36.7, HR 90, RR 20 Vital Signs Date Time Temp Pulse Resp B/P Pulse Ox O2 Delivery O2 Flow Rate FiO2 06/08/16 15:15 36.6 85 17 125/85 97 Room Air 06/08/16 12:26 37.1 89 16 133/97 95 Room Air 06/08/16 08:50 36.8 85 16 138/91 95 Room Air Anesthetic Administered: MAC Level of Alertness: Sleeping, hard to arouse VALENZUELA's with Equal Strength: Yes Pain: Yes Oxygen Delivery: Room Air Lungs: Clear to Auscultation, Normal Air Movement Remy Deleon MD Jun 08, 2016 16:10
--- NOTE | 2016-06-08 16:11 | PCM.ANEP2 ---
Post Anesthesia Evaluation ASA/CMS Post Anesthesia Date of Service: Jun 08, 2016 VS in Patient's Normal Range?: Yes Resp Stable; Airway Patent?: Yes CV Function & Hydration Stable: Yes Mental Status Recovered?: Yes Pain control Satisfactory?: Yes N/V Control Satisfactory?: Yes Remy Deleon MD Jun 08, 2016 16:11
[2016-06-08] MEDS: Pantoprazole 20 mg ER24 Tablet PO SCH (16:50)
--- NOTE | 2016-06-08 18:42 | NUR ---
Pt status Patient resting quietly without complaints. Tolerating full liquid diet. Denies n/v. Two small loose maroon/black stools pre-procedure. No reported pain. VSS. Will continue to monitor.
--- NOTE | 2016-06-08 19:14 | ENDO ---
[address] [address] ENDOSCOPY PROCEDURE PATIENT: ERIN TITUS : 1970 MR#: [id number] ADMIT: 06/07/2016 JOB ID: [id number] PROCEDURE: Esophagogastroduodenoscopy. INDICATIONS: A 45-year-old male with cirrhosis. He was admitted with melena, anemia, and red clots hematemesis. All of the acute symptoms have resolved. He has not required transfusion. Endoscopic interrogation is pursued. EQUIPMENT: [id number]. SEDATION: Monitored anesthesia as provided by Dr. Erin Deleon. COMPLICATIONS: None identified. PROCEDURE INFORMATION: After the risks and benefits were explained, written and verbal informed consent was obtained. The patient was brought into the endoscopy suite and placed into the left lateral decubitus position. Sedation was achieved using the above-stated medications with the addition of oxygen via nasal cannula. The scope was introduced into the mouth through the bite block and advanced under direct visualization through the oropharynx, esophagus, stomach, and onto the second portion of the duodenum. The scope was slowly withdrawn to carefully examine the mucosa for any defects or lesions. Retroflexed views were accomplished in the stomach, the stomach was decompressed, and the scope removed from the patient, who tolerated the procedure well. FINDINGS: 1. Esophagus: The patient had evidence of grade 2 distal esophageal varices in the 4 o'clock location. I, however, did not identify any element of recent bleeding. No high risk stigmata. No high risk areas throughout the esophagus. 2. Stomach: No evidence of any new or old blood in the stomach. There was some white foam and fluid easily suctioned with the endoscope. The patient had a diffuse portal hypertensive gastropathy. No mass lesions. No ulcers. No outlet obstruction. Retroflexed views of the LES disclosed some isolated gastric varices. At this time, however, I did not see any stigmata of significant erosion or ulceration. No platelet plugs. Nothing associated with the varices looked as though it had bled recently. 3. Duodenum: The patient had a mild proximal duodenopathy that appeared to be an extension of the portal gastropathy in the stomach. No ulcers. No mass lesions. No focal pathology. No new or old blood seen throughout the duodenum into the second portion. ENDOSCOPIC DIAGNOSES: 1. No evidence of any active, or even recent, upper gastrointestinal bleeding. 2. Portal hypertensive gastropathy. 3. Isolated fundic varices. 4. Grade 2 distal esophageal varices without stigmata. RECOMMENDATIONS: 1. The etiology of the patients bleeding is a little uncertain. This could conceivably be a Dieulafoy's that spontaneously developed hemostasis. Alternatively, this could have been a consequence of hemorrhagic portal gastropathy. At any rate, I think it would be reasonable to continue octreotide until tomorrow morning, discontinue it from there. 2. I think it would be reasonable to convert him back over to oral PPI. 3. He arguably should get another four days of some form of antibiotic therapy for discharge. 4. Full liquid diet this evening. Diet can be advanced to a 2 g sodium tomorrow as tolerated. 5. Continue low-dose nadolol starting tomorrow. 6. I think the patient will likely be stable for discharge tomorrow as long as he continues to demonstrate evidence of hemostasis. Dr. Chavez is on-call for the weekend. Please call him with any questions or clinical concerns.
[2016-06-08] MEDS: cefTRIAXone Inj 2,000 MG in Dextrose 5% Minibag Plus 50 ML IV SCH (20:18)
[2016-06-09] VITALS (7 sets, daily range): BP systolic 134–147; BP diastolic 87–92; PULSE 66–112; RESP 18–20; O2SAT 95–98
[2016-06-09 04:38] LABS: EOSINOPHILS % (AUTO) 4.8 % (0-5); MONOCYTES % (AUTO) 11.8 % (4-12); Mean Corpuscular Hemoglobin 23.3 pg (27.0-35.0); Mean Corpuscular Volume 74.8 fL (81-100); NEUTROPHILS % (AUTO) 55.6 % (40-74); Platelet Count 70 bil/L (150-400)
[2016-06-09] MEDS: 0.9% Sodium Chloride 1,000 ML IV SCH (05:00)
[2016-06-09] MEDS: Octreotide Inj 500 MCG in 0.9% Sodium Chloride 99 ML IV SCH (06:07)
[2016-06-09] MEDS: Lactulose 20 Gm/30 mL 30 mL Syrup PO SCH ×2 (08:51→20:34)
[2016-06-09] MEDS: Pantoprazole 20 mg ER24 Tablet PO SCH ×2 (08:51→20:07)
[2016-06-09] MEDS ORDERED: Lactulose 10 Gm/15 mL 473 mL Solution PO ONE (08:55)
--- NOTE | 2016-06-09 10:31 | PCM.PNMED ---
Subjective Date of Service Jun 09, 2016 Subjective Overnight patient did well with no issues. EGD from yesterday did not identify a definitive reason for the patient's bleeding. Patient was converted back to an oral PPI, given lactulose, with octreotide being stopped this morning. Patient Freddy diet 2 g sodium per day. No other complaints. Exam Vital Signs Vital Sign - Last Date Time Temp Pulse Resp B/P Pulse Ox O2 Delivery O2 Flow Rate FiO2 06/09/16 09:24 77 06/09/16 08:47 36.8 20 136/87 95 Room Air Intake and Output 06/08/16 06/08/16 06/09/16 Cumulative From/Thru 15:00 23:00 07:00 06/07/16 18:05 - 06/09/16 06:10 Intake Total 2122 ml 1474 ml 4768 ml Output Total 150 ml 600 ml Balance 1972 ml 1474 ml 4168 ml Intake Oral 420 ml 320 ml 840 ml IV Total 1702 ml 1154 ml 3928 ml Output Urine Total 450 ml Stool Total 150 ml 150 ml # Voids 4 2 6 # Bowel Movements 1 Exam Gen: NAD, lying comfortably HEENT: no jvd, no lymphadenopathy Cardio: Regular rate and rhythm no murmurs rubs or gallops Respiratory: Clear to auscultation bilaterally with no coarse breath sounds Abdomen: Soft, nontender, nondistended, positive bowel sounds, no right upper quadrant or epigastric tenderness Extremities: No edema, no cyanosis Skin: No rashes, warm and dry Neurological: Grossly intact, moving all 4 shoulders Psych: Appropriate mood and affect IVs and Medications Medications Reviewed: Medications were reviewed in detail Lab and Diagnostics Result Diagram: 06/09/1642906/09/16429 Assessment & Plan Mr. Remy Krueger is a pleasant 45 year old gentleman with a history of alcoholic cirrhosis, gastric varices, HCV, and HTN, that presented to the ED with a 12 hour history of hematemesis; He was admitted for evaluation and treatment of acute anemia secondary to gastrointestinal bleeding. Hospital day one Upper gastrointestinal bleeding, acute, present on admission. Under therapy - Unknown etiology at this time; possible hemorrhagic portal gastropathy or Dieulafoy's that spontaneously developed hemostasis. - Placed on clear liquids last night, order to advance diet to 2 g of sodium due to liver dysfunction and ascites - Octreotide drip discontinued - Protonix changed to oral - Ceftriaxone 1g q24 continued for 4 more days - Restart Nadolol today Hyperammonemia; present on admission; resolving - Patient presented with a ammonia level of 190; resolving 2017 today - Patient not displaying any encephalopathy - Patient will be watched today and treated with lactulose Anemia, acute from blood loss, present on admission. Under therapy - Secondary to above; H&H stable - tachycardia resolved - IV fluids will be discontinued as patient can take oral - will transfuse pRBC if Hgb < 7 according restrictive transfusions guidelines; currently patient is stable at approximately 0.5 Alcoholic cirrhosis with portal Hypertension, Thrombocytopenia and varices, chronic. - Lactulose and rifaximin restarted - Platelet transfusion when drop < 50,000. - LFTs increased; follow these tomorrow Hypertension, essential, chronic. Resolving - Patient not on any antihypertensive agents - Monitor closely Nicotine Dependence. Ongoing - cessation discussed and encouraged. - Nicotine lozenges ordered - Avoid Tylenol as much as possible; no NSAIDs due to ongoing bleed - Bowel regimen as needed - Antiemetic as needed - Restarted home meds including nebulizers and fluoxetine Disposition: Expect discharge tomorrow after ammonia resolution. LFTs will be followed. Should not have any placement issue as he is going home. GI Prophylaxis: Proton Pump Inhibitor VTE Mechanical Devices: Intermittant Pneumatic CD Resuscitation Status: CPR: Attempt Resuscitation Leodan Casillas DO Jun 09, 2016 10:31
[2016-06-09] MEDS ORDERED: Albuterol 2.5 mg/3 mL Inhalation Solution NEB SCH (11:00)
[2016-06-09] MEDS ORDERED: Albuterol-Ipratropium 3 mL Inhalation Solution NEB PRN (11:00)
--- NOTE | 2016-06-09 18:24 | NUR ---
Ammonia/Activity/ BM: P: Pt and his requesting discharge today despite elevated Ammonia levels (118). I: was notified. MD ordered Ammonia levels to be rechecked after having Lactulose 50mg total this AM. E: Ammonia level was even higher this afternoon (131). Pt agreed to stay overnight. Pt has been ambulating in halls and had one large/loose/brown stool (per pt) after second ammonia level was drawn today.
[2016-06-09] MEDS: cefTRIAXone Inj 2,000 MG in Dextrose 5% Minibag Plus 50 ML IV SCH (20:37)
[2016-06-10] MEDS ORDERED: Albuterol 2.5 mg/3 mL Inhalation Solution NEB PRN (00:25)
[2016-06-10 04:18] VITALS: BP 122/86; PULSE 71; RESP 16; O2SAT 96
[2016-06-10 04:52] LABS: BASOPHILS % (AUTO) 1.2 % (0-3); EOSINOPHILS % (AUTO) 5.2 % (0-5); MONOCYTES % (AUTO) 12.2 % (4-12); Mean Corpuscular Hemoglobin 23.5 pg (27.0-35.0); Mean Corpuscular Volume 75.1 fL (81-100); NEUTROPHILS % (AUTO) 51.4 % (40-74); Platelet Count 73 bil/L (150-400)
[2016-06-10 08:20] VITALS: BP 116/60; PULSE 69; RESP 20; O2SAT 96
[2016-06-10] MEDS: Lactulose 20 Gm/30 mL 30 mL Syrup PO SCH (08:35)
[2016-06-10] MEDS: Pantoprazole 20 mg ER24 Tablet PO SCH (08:36)
[2016-06-10] MEDS ORDERED: Heparin 1,000 Unit/mL 10 mL Inj ONE (11:33)
[2016-06-10] MEDS ORDERED: 0.9% Sodium Chloride 0 ML ONE (11:33)
[2016-06-10] MEDS ORDERED: Heparin 1,000 Units/500 mL NS Premix IV ONE (11:33)
--- NOTE | 2016-06-10 12:15 | PCM.DIMED ---
Discharge Instructions Date of Service Jun 10, 2016 Dates of Hospitalization Jun 07, 2016 at 21:10 Discharge Diagnosis Discharge Diagnosis Acute blood loss Anemia, Hypertension, Tobacco dependence, Alcoholic cirrhosis with portal Hypertension, Thrombocytopenia , Esophageal Varices , hyperammonemia , Liver cirrhosis Diet Low fat, Low Sodium Activity No restrictions Call your provider Bleeding, Vomitting Patient Instructions Ammonia level with primary care doctor in 2 days Follow-up with PCP in: 1 week Follow-up in: 1 week (Gastroenterology in 2 weeks ) Adriel Hugo MD Jun 10, 2016 12:14
[2016-06-10] MEDS ORDERED: LACT10SO60 PO (12:18)
[2016-06-10] MEDS ORDERED: PANT20TA2 PO (12:18)
--- NOTE | 2016-06-10 13:08 | NUR ---
D/C.. Pt's ammonia levels have been on the decline, but still elevated. Pt remains coherent and appropriate. Has been up amb in room. Very anxious to go home, despite advise to stay overnight. Pt requested to leave AMA. AMA paperwork signed and was given D/C paperwork and prescriptions. Of note D/C paperwork stated for pt to see his PCP in a week.. states his PCP no longer is working and that his new appointment to establish with a new provider isn't until October. Pt's will notify Dr Huerta and followup with him. D/C'd home with and his belongings.
--- NOTE | 2016-06-10 14:06 | NUR ---
Social Work: AMA D: Pt discusses in am rounds. Pt is not medically stable for discharge due to toxic ammonia levels. Pt is adamant that he is leaving today. [employer] met with the pt at bedside. He confirms that he is leaving and does not have any discharge needs. Pt is I at baseline and continue to be I. Pt's will be transporting. A: [place] who is [place]. P: Pt leaving AMA with no sw needs. KATE Will
--- NOTE | 2016-06-10 16:27 | PCM.DC.MED ---
Discharge Summary Date of Service Jun 10, 2016 Dates of Hospitalization Date of Hospital Admission Jun 07, 2016 at 21:10 Date of Discharge: Jun 10, 2016 Providers: Admitting Physician: Colby Monreal MD Primary Care Physician: Isis Rogers [facility] Attending Physician: Colby Monreal MD Diagnosis at Time of Discharge Diagnosis at Time of Discharge Acute blood loss Anemia, Hypertension, Tobacco dependence, Alcoholic cirrhosis with portal Hypertension, Thrombocytopenia , Esophageal Varices , hyperammonemia , Liver cirrhosis Consultations Gastroenterology Procedures Invasive Procedures EGD : 1. The etiology of the patients bleeding is a little uncertain. This could conceivably be a Dieulafoy's that spontaneously developed hemostasis. Alternatively, this could have been a consequence of hemorrhagic portal gastropathy. Brief History Mr. Krueger is an extremely pleasant 45 year old gentleman with a history of alcoholic cirrhosis, HCV genotype 1a treated with Harvoni, and fundic and esophageal varices, that presented to [facility] 06/07 with 3 episodes of hematemesis , abdominal pain, and melena. He was admitted for evaluation and treatment of acute anemia secondary to UGIB. GI was consulted to further assist in evaluation and treatment. Mr. Krueger states that after dinner 06/07, he began feeling ill with abdominal pain. His first episode of emesis contained a large amount of blood, and subsequent episodes x2 yielded less, and blood became scant. No recurrence of nausea and/or vomiting since admission. Stools remain dark and tarry. Denies any inciting factors for onset, other than overall general malaise and cough secondary to URI likely from his children, whom are also ill with URI-symptoms. Denies any recent NSAID, ASA use. Last EtOH intake was an isolated event summer 2015, of which, he states was not a binge amount, and has not had any EtOH intake since that time. GI consulted to evaluate symptoms and etiology. Hospital Course Mr. Remy Krueger is a pleasant 45 year old gentleman with a history of alcoholic cirrhosis, gastric varices, HCV, and HTN, that presented to the ED with a 12 hour history of hematemesis; He was admitted for evaluation and treatment of acute anemia secondary to gastrointestinal bleeding. Hospital day one Upper gastrointestinal bleeding, acute, present on admission. Under therapy - Unknown etiology at this time; possible hemorrhagic portal gastropathy or Dieulafoy's that spontaneously developed hemostasis. - Placed on clear liquids last night, order to advance diet to 2 g of sodium due to liver dysfunction and ascites - Treated initially with Octreotide drip then discontinued after EDG - Protonix oral - Restart Nadolol Hyperammonemia; present on admission; resolving - Patient presented with a ammonia level of 190 and 93 on discharge . He was not complaint with Lactulose due to diarrhea Lactulose changed to 20 mg BID . Anemia, acute from blood loss, present on admission. Alcoholic cirrhosis with portal Hypertension, Thrombocytopenia and varices, chronic. - Lactulose and rifaximin Hypertension, essential, chronic. Nicotine Dependence. Ongoing - cessation discussed and encouraged. - Nicotine lozenges ordered Patient left AMA. scripts are provided for his mediations . He is instructed to have his ammonia level checked in 2 days with his primary care doctor Exam Vital Signs (Last) Date Time Temp Pulse Resp B/P Pulse Ox O2 Delivery O2 Flow Rate FiO2 06/10/16 08:20 36.8 69 20 116/60 96 Room Air Exam Gen:Chronically ill appearing male, lying in bed comfortably HEENT: LEE Neck : Supple, no JVD , no carotid bruit Cardio: S1S2, regular rate and rhythm no murmurs rubs or gallops Respiratory: Clear to auscultation bilaterally , no crackles Abdomen: Soft, nontender, nondistended, positive bowel sounds Extremities: No edema, no cyanosis, no calf tenderness Neurological: Grossly non focal . AAO x 3 Test 06/07/16 18:30 06/09/16 04:30 06/10/16 04:18 06/10/16 08:32 Prothrombin Time 15.4sec (8.1-12.5) Prothromb Time International Ratio 1.43ratio Hold Rayo Top Tube Received (Received) Lipase 33U/L (13-60) Thyroid Stimulating Hormone (TSH) 0.236uIU/mL (0.450-4.500) Free Thyroxine 1.00ng/dL (0.82-1.77) White Blood Count 4.0th/mm3 (3.8-10.1) Red Blood Count 3.62mil/mm3 (4.40-5.80) Hemoglobin 8.5g/dL (13.8-17.2) Hematocrit 27.2% (41.0-50.0) Mean Corpuscular Volume 75.1fL (81-100) Mean Corpuscular Hemoglobin 23.5pg (27.0-35.0) Mean Corpuscular Hemoglobin Concent 31.3% (32.0-37.0) Red Cell Distribution Width 22.7% (12.3-15.4) Platelet Count 73bil/L (150-400) Neutrophils (%) (Auto) 51.4% (40-74) Lymphocytes (%) (Auto) 29.8% (14-46) Monocytes (%) (Auto) 12.2% (4-12) Eosinophils (%) (Auto) 5.2% (0-5) Basophils (%) (Auto) 1.2% (0-3) Sodium Level 136mEq/L (134-144) Potassium Level 4.0mEq/L (3.5-5.2) Chloride Level 102mEq/L (97-108) Carbon Dioxide Level 20mmol/L (18-29) Blood Urea Nitrogen 7mg/dL (6-24) Creatinine 0.61mg/dL (0.76-1.27) Estimat Glomerular Filtration Rate 151mL/min (>59) Glucose Level 105mg/dL (60-99) Calcium Level 8.3mg/dL (8.5-10.1) Total Bilirubin 2.1mg/dL (0.0-1.2) Aspartate Amino Transf (AST/SGOT) 224U/L (0-50) Alanine Aminotransferase (ALT/SGPT) 63U/L (0-44) Alkaline Phosphatase 90U/L (25-150) Total Protein 6.5g/dL (6.4-8.4) Albumin 2.9g/dL (3.4-5.0) Procalcitonin 0.12ng/mL (0.00-0.08) Ammonia 95ug/dL (18-53) Discharge Medications Discharge Medications ([OTC Cannabis Oil]) 6 GTT PO HS (Reported) Amitriptyline (Amitriptyline) 25 Mg Tab 50 MG PO HS (Reported) Fluoxetine (Fluoxetine) 20 Mg Capsule 20 MG PO DAILY (Reported) Lactulose (Lactulose) 20 Gm/30 Ml Solution 20 GM PO BID Prescribed by: LEANNA HUGO MD Nadolol (Nadolol) 20 Mg Tablet 20 MG PO HS (Reported) Pantoprazole DR (Pantoprazole DR) 20 Mg Tablet.dr 20 MG PO BID Prescribed by: LEANNA HUGO MD Rifaximin (Xifaxan) 550 Mg Tablet 550 MG PO BID (Reported) As needed Albuterol HFA (Proair HFA) 8.5 Gm Hfa.aer.ad 2 PUFFS INHALATION Q4H PRN PRN For Shortness of Breath (Reported) Albuterol/Ipratropium (Combivent Respimat Inhal [place]) 120 Spr/4 Gm Inhaler 1 PUFF IH QID PRN PRN For Shortness of Breath (Reported) Nicotine Polacrilex (Nicotine Gum) 2 Mg Gum 2 MG PO PRN PRN PRN For Tobacco Withdrawal (Reported) Followup Plan Disposition: Home . AMA Discharge Diet: Low fat, Low Sodium Discharge Activity: No restrictions Patient Instructions Ammonia level with primary care doctor in 2 days Follow-up with PCP in: 1 week Follow-up in: 1 week Time spent 35 minutes . Patient seen and examined on discharge date Leanna Hugo MD Jun 10, 2016 16:27
== END 2016-06-10 12:50 | disposition left against medical advice (07) | DRG 378 ==
LOC: SED 18:00 → CCU 21:10 → OBSVTOIN 21:10 → PCC 06-08 01:29
PROVIDERS: ADMIT Hospitalist; ATTEND Hospitalist
PROC: 0DJ08ZZ Inspection of Upper Intestinal Tract, Via Natural or Artificial Opening Endoscopic (ICD-10-PCS; principal; 2016-06-08 15:30)
DX: K92.2 Gastrointestinal hemorrhage, unspecified (principal); D62 Acute posthemorrhagic anemia; E72.20 Disorder of urea cycle metabolism, unspecified; K76.6 Portal hypertension; K70.30 Alcoholic cirrhosis of liver without ascites; K31.89 Other diseases of stomach and duodenum; I85.10 Secondary esophageal varices without bleeding; K31.82 Dieulafoy lesion (hemorrhagic) of stomach and duodenum; F17.200 Nicotine dependence, unspecified, uncomplicated